=== PATIENT | female | born 1950 | race Caucasian/White ===

== ENCOUNTER 2019-01-07 14:52 | Inpatient (IN) | payer MEDICARE, BC ==
[~2019-01-07] VITALS: Ht 162.6 cm; Wt 131.5 kg
[2019-01-07] MEDS ORDERED: NITROGLYCERIN 0.4MG TABLET SL SL ONE (16:00)
[2019-01-07] MEDS ORDERED: SODIUM CHLORIDE 0.9% 1000ML BAG (SEPSIS BOLUS) IV ONE (16:00)
[2019-01-07] MEDS ORDERED: PIPERACILLIN/TAZ 3.375G PREMIX 50 ML IV ONE (16:00)
[2019-01-07] MEDS ORDERED: VANCOMYCIN 1 G PREMIX 200 ML IV ONE (16:00)
[2019-01-07 16:35] LABS: HEMOGLOBIN. 12.1 g/dL (12.0-16.0); MEAN CORPUSCULAR HEMOGLOBIN 29.3 pg (28.0-32.0); MEAN CORPUSCULAR VOLUME 89.5 fL (81.0-99.0); MEAN PLATELET VOLUME 9.8 fl (7.4-10.4); PLATELET 232 x1000/uL (130-400); RED BLOOD CELL COUNT 4.13 mill/uL (4.2-5.4); RED CELL DISTRIBUTION WIDTH 16.6 % (11.6-14.6)
[2019-01-07 16:38] LABS: CHLORIDE 99 mEq/L (98-107)
[2019-01-07 16:39] LABS: PROTHROMBIN TIME 10.5 sec (9.6-11.0)
[2019-01-07 16:57] LABS: PLATELET ESTIMATE NORMAL
[2019-01-07] MEDS ORDERED: ASPIRIN 325MG TABLET PO ONE (17:15)
[2019-01-07 17:27] LABS: CLARITY URINE CLEAR (CLEAR); COLOR URINE YELLOW (YELLOW); KETONES URINE NEGATIVE (NEGATIVE); LEUKOCYTE ESTERASE URINE TRACE (NEGATIVE); NITRITE URINE NEGATIVE (NEGATIVE); OCCULT BLOOD URINE 3+ (NEGATIVE); PROTEIN URINE 1+ (NEGATIVE); SPECIFIC GRAVITY URINE 1.013 (1.005-1.030); UROBILINOGEN URINE 0.2 E.U./dL (0.2-1.0)
[2019-01-07] MEDS ORDERED: ACETAMINOPHEN 500MG TABLET PO ONE (18:45)
[2019-01-07] MEDS ORDERED: LORAZEPAM 2MG/ML CPJ IV ONE (19:30)
[2019-01-07 20:00] VITALS: BP 138/54
[2019-01-07] MEDS ORDERED: ONDANSETRON HCL 4MG/2ML INJ IV PRN (20:45)
[2019-01-07] MEDS ORDERED: DEXTROSE 50% WATER 50ML SYRINGE IV PRN (20:45)
[2019-01-07] MEDS ORDERED: IPRATROPIUM/ALBUTEROL 0.5-3(2.5)MG/3ML NEB INH PRN (20:45)
[2019-01-07] MEDS ORDERED: HYDROMORPHONE HCL/PF 2MG/ML CPJ IV PRN (20:45)
[2019-01-07] MEDS ORDERED: DOCUSATE SODIUM 100MG CAPSULE PO PRN (20:45)
[2019-01-07] MEDS ORDERED: MAGNESIUM/ALUMINUM HYDROXIDE/SIMETHICONE 30ML UDC PO PRN (20:45)
[2019-01-07] MEDS ORDERED: POTASSIUM CHLORIDE 20MEQ TABLET SR PO NR (21:30)
[2019-01-07] MEDS: BLOOD SUGAR DIAGNOSTIC STRIP TEST SCH (21:30)
[2019-01-07 22:00] VITALS: BP 130/62
[2019-01-07] MEDS ORDERED: VANCOMYCIN 1 G PREMIX 200 ML IV NR (22:00)
[2019-01-07] MEDS: INSULIN LISPRO 100 UNITS/ML SUBCUT SCH (22:50)
[2019-01-07] MEDS: SODIUM CHLORIDE 0.9% INJ 3ML FLUSH IVF SCH (22:51)
[2019-01-07] MEDS: ENOXAPARIN 40MG/0.4ML SYR SUBCUT SCH (22:52)
[2019-01-07] MEDS: GUAIFENESIN 200MG/10ML SUGAR FREE UDC PO PRN (23:40)
[2019-01-07] MEDS: PIPERACILLIN/TAZ 3.375G PREMIX 50 ML IV SCH (23:41)
[2019-01-07] MEDS: LORAZEPAM 2MG/ML CPJ IV PRN (23:41)
[2019-01-07 23:54] LABS: CREATINE KINASE MB FRACTION 62.6 ng/mL (0.5-3.6)
[2019-01-08] VITALS (12 sets, daily range): BP systolic 101–146; BP diastolic 42–99
[2019-01-08] MEDS: ACETAMINOPHEN 325MG TABLET PO PRN (04:16)
[2019-01-08] MEDS: SODIUM CHLORIDE 0.9% INJ 3ML FLUSH IVF SCH ×3 (05:18→21:37)
[2019-01-08] MEDS: DIPHENHYDRAMINE 50MG/ML VIAL IV PRN (05:18)
[2019-01-08] MEDS: LORAZEPAM 2MG/ML CPJ IV PRN (06:51)
[2019-01-08 07:36] LABS: HEMATOCRIT. 33.9 % (36.0-48.0); HEMOGLOBIN. 11.1 g/dL (12.0-16.0); MEAN CORPUSCULAR HEMOGLOBIN 29.6 pg (28.0-32.0); MEAN CORPUSCULAR VOLUME 89.9 fL (81.0-99.0); MEAN PLATELET VOLUME 9.4 fl (7.4-10.4); PLATELET 189 x1000/uL (130-400); RED BLOOD CELL COUNT 3.77 mill/uL (4.2-5.4); RED CELL DISTRIBUTION WIDTH 16.9 % (11.6-14.6)
[2019-01-08 07:48] LABS: CHLORIDE 104 mEq/L (98-107)
[2019-01-08] MEDS: BLOOD SUGAR DIAGNOSTIC STRIP TEST SCH ×4 (07:55→21:34)
[2019-01-08 08:00] LABS: T4 FREE 1.54 ng/dL (0.76-1.46)
[2019-01-08 08:02] LABS: CREATINE KINASE MB FRACTION 30.7 ng/mL (0.5-3.6)
[2019-01-08] MEDS: PIPERACILLIN/TAZ 3.375G PREMIX 50 ML IV SCH (08:24)
[2019-01-08 08:50] LABS: CREATINE KINASE 18105 IU/L (26-192)
[2019-01-08] MEDS: ASPIRIN 81MG TABLET PO SCH (09:29)
[2019-01-08] MEDS: INSULIN LISPRO 100 UNITS/ML SUBCUT SCH ×4 (09:30→21:00)
[2019-01-08] MEDS: HYDROCODONE/ACETAMINOPHEN 10/325MG TABLET PO PRN ×2 (09:33→18:09)
[2019-01-08] MEDS ORDERED: POTASSIUM CHLORIDE 20MEQ TABLET SR PO NR (10:30)
[2019-01-08] MEDS: ENOXAPARIN 40MG/0.4ML SYR SUBCUT SCH (10:52)
[2019-01-08] MEDS: SODIUM CHLORIDE 0.9% 1,000 ML IV SCH ×2 (10:56→23:51)
[2019-01-08 13:09] LABS: PLATELET ESTIMATE NORMAL
[2019-01-08] MEDS ORDERED: NYSTATIN 100,000 UNITS/GM CREAM 15GM TOP SCH (15:00)
[2019-01-08] MEDS: NYSTATIN POWDER 15GM TOP SCH (15:58)
[2019-01-08] MEDS: PIPERACILLIN/TAZ 2.25G PREMIX 50 ML IV SCH ×2 (15:58→21:30)
[2019-01-08] MEDS: GUAIFENESIN 200MG/10ML SUGAR FREE UDC PO PRN (18:09)
[2019-01-08] MEDS: NYSTATIN 100,000 UNITS/GM CREAM 15GM TOP SCH (18:10)
[2019-01-08] MEDS ORDERED: VANCOMYCIN 1 G PREMIX 200 ML IV SCH (21:00)
[2019-01-08] MEDS: ENOXAPARIN 30MG/0.3ML SYR SUBCUT SCH (21:35)
[2019-01-09] VITALS (12 sets, daily range): BP systolic 110–153; BP diastolic 37–74
[2019-01-09] MEDS: PIPERACILLIN/TAZ 2.25G PREMIX 50 ML IV SCH ×4 (02:28→21:29)
[2019-01-09] MEDS: LORAZEPAM 2MG/ML CPJ IV PRN (02:42)
[2019-01-09 07:04] LABS: HEMATOCRIT. 34.7 % (36.0-48.0); HEMOGLOBIN. 11.1 g/dL (12.0-16.0); MEAN CORPUSCULAR HEMOGLOBIN 29.1 pg (28.0-32.0); MEAN CORPUSCULAR VOLUME 90.7 fL (81.0-99.0); MEAN PLATELET VOLUME 9.4 fl (7.4-10.4); PLATELET 163 x1000/uL (130-400); RED BLOOD CELL COUNT 3.82 mill/uL (4.2-5.4)
[2019-01-09] MEDS: BLOOD SUGAR DIAGNOSTIC STRIP TEST SCH ×4 (07:30→21:29)
[2019-01-09] MEDS: INSULIN LISPRO 100 UNITS/ML SUBCUT SCH ×4 (08:00→21:48)
[2019-01-09] MEDS: ENOXAPARIN 30MG/0.3ML SYR SUBCUT SCH ×2 (09:23→21:29)
[2019-01-09] MEDS: ASPIRIN 81MG TABLET PO SCH (09:24)
[2019-01-09] MEDS: NYSTATIN 100,000 UNITS/GM CREAM 15GM TOP SCH ×2 (09:25→21:27)
[2019-01-09] MEDS: NYSTATIN POWDER 15GM TOP SCH ×3 (09:25→18:03)
[2019-01-09 09:28] LABS: PLATELET ESTIMATE NORMAL
[2019-01-09] MEDS: SODIUM CHLORIDE 0.9% INJ 3ML FLUSH IVF SCH (22:00)
[2019-01-09] MEDS: DIPHENHYDRAMINE 50MG/ML VIAL IV PRN (23:15)
[2019-01-10] VITALS (10 sets, daily range): BP systolic 109–143; BP diastolic 42–94
[2019-01-10] MEDS: PIPERACILLIN/TAZ 2.25G PREMIX 50 ML IV SCH ×4 (02:35→20:50)
[2019-01-10] MEDS: LORAZEPAM 2MG/ML CPJ IV PRN ×4 (03:42→22:04)
[2019-01-10] MEDS: DIPHENHYDRAMINE 50MG/ML VIAL IV PRN (05:21)
[2019-01-10] MEDS: SODIUM CHLORIDE 0.9% INJ 3ML FLUSH IVF SCH ×3 (05:28→20:51)
[2019-01-10 06:35] LABS: BASOPHILS % 0.9 % (0.0-2.0); EOSINOPHILS % 7.8 % (0.0-5.0); HEMATOCRIT. 34.7 % (36.0-48.0); HEMOGLOBIN. 11.5 g/dL (12.0-16.0); LYMPHOCYTES % 7.7 % (20.0-50.0); MEAN CORPUSCULAR HEMOGLOBIN 29.6 pg (28.0-32.0); MEAN CORPUSCULAR VOLUME 89.3 fL (81.0-99.0); MEAN PLATELET VOLUME 9.9 fl (7.4-10.4); MONOCYTES % 9.6 % (2.0-8.0); PLATELET 191 x1000/uL (130-400); RED BLOOD CELL COUNT 3.88 mill/uL (4.2-5.4); RED CELL DISTRIBUTION WIDTH 16.5 % (11.6-14.6)
[2019-01-10] MEDS: BLOOD SUGAR DIAGNOSTIC STRIP TEST SCH ×4 (08:12→20:53)
[2019-01-10] MEDS: ASPIRIN 81MG TABLET PO SCH (08:32)
[2019-01-10] MEDS: ENOXAPARIN 30MG/0.3ML SYR SUBCUT SCH (08:32)
[2019-01-10] MEDS: INSULIN LISPRO 100 UNITS/ML SUBCUT SCH ×4 (08:34→20:58)
[2019-01-10] MEDS: NYSTATIN POWDER 15GM TOP SCH ×3 (08:35→17:26)
[2019-01-10] MEDS: NYSTATIN 100,000 UNITS/GM CREAM 15GM TOP SCH ×2 (08:36→20:53)
[2019-01-10] MEDS ORDERED: VANCOMYCIN 1 G PREMIX 200 ML IV SCH (15:00)
[2019-01-11] VITALS (12 sets, daily range): BP systolic 96–149; BP diastolic 53–87
[2019-01-11] MEDS: DIPHENHYDRAMINE 50MG/ML VIAL IV PRN ×3 (00:16→23:51)
[2019-01-11] MEDS: PIPERACILLIN/TAZ 2.25G PREMIX 50 ML IV SCH ×2 (03:43→09:20)
[2019-01-11] MEDS: SODIUM CHLORIDE 0.9% INJ 3ML FLUSH IVF SCH ×3 (05:05→23:58)
[2019-01-11] MEDS: BLOOD SUGAR DIAGNOSTIC STRIP TEST SCH ×4 (07:30→21:00)
[2019-01-11] MEDS: ASPIRIN 81MG TABLET PO SCH (09:20)
[2019-01-11] MEDS: NYSTATIN POWDER 15GM TOP SCH ×3 (09:20→17:32)
[2019-01-11] MEDS: ENOXAPARIN 40MG/0.4ML SYR SUBCUT SCH (09:21)
[2019-01-11] MEDS: NYSTATIN 100,000 UNITS/GM CREAM 15GM TOP SCH ×2 (09:21→23:58)
[2019-01-11] MEDS: INSULIN LISPRO 100 UNITS/ML SUBCUT SCH ×4 (09:23→21:00)
[2019-01-11] MEDS: ACETAMINOPHEN 325MG TABLET PO PRN (10:38)
[2019-01-11] MEDS: LORAZEPAM 2MG/ML CPJ IV PRN (13:42)
[2019-01-11 17:26] LABS: CREATINE KINASE 1603 IU/L (26-192)
[2019-01-11 17:47] LABS: HEPATITIS B SURFACE ANTIGEN NEGATIVE
[2019-01-11 18:17] LABS: HEPATITIS A AB IGM NEGATIVE (NEGATIVE)
[2019-01-12] VITALS (12 sets, daily range): BP systolic 94–150; BP diastolic 56–102
[2019-01-12] MEDS: LORAZEPAM 2MG/ML CPJ IV PRN ×2 (00:45→06:10)
[2019-01-12] MEDS: SODIUM CHLORIDE 0.9% INJ 3ML FLUSH IVF SCH ×3 (06:11→21:38)
[2019-01-12 06:17] LABS: HEMATOCRIT. 32.6 % (36.0-48.0); HEMOGLOBIN. 10.5 g/dL (12.0-16.0); MEAN CORPUSCULAR HEMOGLOBIN 29.1 pg (28.0-32.0); MEAN CORPUSCULAR VOLUME 90.3 fL (81.0-99.0); MEAN PLATELET VOLUME 9.5 fl (7.4-10.4); PLATELET 206 x1000/uL (130-400); RED BLOOD CELL COUNT 3.61 mill/uL (4.2-5.4); RED CELL DISTRIBUTION WIDTH 16.6 % (11.6-14.6)
[2019-01-12] MEDS: BLOOD SUGAR DIAGNOSTIC STRIP TEST SCH ×4 (07:30→21:38)
[2019-01-12] MEDS: NYSTATIN POWDER 15GM TOP SCH ×3 (08:21→18:38)
[2019-01-12] MEDS: ENOXAPARIN 40MG/0.4ML SYR SUBCUT SCH (08:22)
[2019-01-12] MEDS: NYSTATIN 100,000 UNITS/GM CREAM 15GM TOP SCH ×2 (08:22→21:38)
[2019-01-12] MEDS: ASPIRIN 81MG TABLET PO SCH (08:22)
[2019-01-12] MEDS: INSULIN LISPRO 100 UNITS/ML SUBCUT SCH ×4 (08:24→21:47)
[2019-01-12 11:31] LABS: PLATELET ESTIMATE NORMAL
[2019-01-12] MEDS: SODIUM CHLORIDE 0.45% 1,000 ML IV SCH (13:34)
[2019-01-12] MEDS: IPRATROPIUM/ALBUTEROL 0.5-3(2.5)MG/3ML NEB HHN SCH (20:46)
[2019-01-12] MEDS: BUDESONIDE 0.5MG/2ML NEB HHN SCH (20:50)
[2019-01-13] VITALS (10 sets, daily range): BP systolic 132–169; BP diastolic 60–95
[2019-01-13] MEDS: IPRATROPIUM/ALBUTEROL 0.5-3(2.5)MG/3ML NEB HHN SCH ×6 (00:18→21:05)
[2019-01-13] MEDS: SODIUM CHLORIDE 0.9% INJ 3ML FLUSH IVF SCH ×3 (05:54→22:00)
[2019-01-13 06:56] LABS: BASOPHILS % 0.9 % (0.0-2.0); EOSINOPHILS % 12.8 % (0.0-5.0); HEMATOCRIT. 30.4 % (36.0-48.0); LYMPHOCYTES % 11.1 % (20.0-50.0); MEAN CORPUSCULAR HEMOGLOBIN 29.7 pg (28.0-32.0); MEAN CORPUSCULAR VOLUME 90.3 fL (81.0-99.0); MEAN PLATELET VOLUME 9.9 fl (7.4-10.4); MONOCYTES % 6.7 % (2.0-8.0); NEUTROPHILS % 68.5 % (40.0-76.0); PLATELET 203 x1000/uL (130-400); RED BLOOD CELL COUNT 3.37 mill/uL (4.2-5.4); RED CELL DISTRIBUTION WIDTH 16.6 % (11.6-14.6)
[2019-01-13] MEDS: BUDESONIDE 0.5MG/2ML NEB HHN SCH ×2 (07:55→21:04)
[2019-01-13] MEDS: BLOOD SUGAR DIAGNOSTIC STRIP TEST SCH ×4 (08:23→21:00)
[2019-01-13] MEDS: ASPIRIN 81MG TABLET PO SCH (08:40)
[2019-01-13] MEDS: ENOXAPARIN 40MG/0.4ML SYR SUBCUT SCH (08:40)
[2019-01-13] MEDS: NYSTATIN 100,000 UNITS/GM CREAM 15GM TOP SCH ×2 (08:41→22:21)
[2019-01-13] MEDS: INSULIN LISPRO 100 UNITS/ML SUBCUT SCH ×4 (08:41→22:32)
[2019-01-13] MEDS: NYSTATIN POWDER 15GM TOP SCH ×3 (08:42→18:08)
[2019-01-13] MEDS: SODIUM CHLORIDE 0.45% 1,000 ML IV SCH (08:42)
[2019-01-13] MEDS: LORAZEPAM 2MG/ML CPJ IV PRN ×2 (12:39→18:07)
[2019-01-13] MEDS ORDERED: POTASSIUM CHLORIDE 20MEQ TABLET SR PO SCH (12:45)
[2019-01-13] MEDS ORDERED: BUDESONIDE 0.5MG/2ML NEB ONE (20:37)
[2019-01-13] MEDS: RISPERIDONE 1MG TABLET PO SCH (22:21)
[2019-01-14] VITALS (10 sets, daily range): BP systolic 129–169; BP diastolic 66–92
[2019-01-14] MEDS: IPRATROPIUM/ALBUTEROL 0.5-3(2.5)MG/3ML NEB HHN SCH ×5 (00:09→21:58)
[2019-01-14] MEDS: SODIUM CHLORIDE 0.45% 1,000 ML IV SCH (05:00)
[2019-01-14] MEDS: SODIUM CHLORIDE 0.9% INJ 3ML FLUSH IVF SCH ×3 (05:22→21:18)
[2019-01-14 06:03] LABS: BASOPHILS % 1.2 % (0.0-2.0); EOSINOPHILS % 7.1 % (0.0-5.0); HEMATOCRIT. 33.9 % (36.0-48.0); HEMOGLOBIN. 10.9 g/dL (12.0-16.0); LYMPHOCYTES % 13.7 % (20.0-50.0); MEAN CORPUSCULAR HEMOGLOBIN 28.9 pg (28.0-32.0); MEAN CORPUSCULAR VOLUME 89.6 fL (81.0-99.0); MEAN PLATELET VOLUME 9.8 fl (7.4-10.4); MONOCYTES % 5.9 % (2.0-8.0); NEUTROPHILS % 72.1 % (40.0-76.0); PLATELET 271 x1000/uL (130-400); RED BLOOD CELL COUNT 3.78 mill/uL (4.2-5.4); RED CELL DISTRIBUTION WIDTH 16.7 % (11.6-14.6)
[2019-01-14] MEDS: BLOOD SUGAR DIAGNOSTIC STRIP TEST SCH ×4 (07:32→21:18)
[2019-01-14] MEDS: ASPIRIN 81MG TABLET PO SCH (08:31)
[2019-01-14] MEDS: NYSTATIN POWDER 15GM TOP SCH ×3 (08:31→18:30)
[2019-01-14] MEDS: RISPERIDONE 1MG TABLET PO SCH ×2 (08:31→21:24)
[2019-01-14] MEDS: ENOXAPARIN 40MG/0.4ML SYR SUBCUT SCH (08:31)
[2019-01-14] MEDS: NYSTATIN 100,000 UNITS/GM CREAM 15GM TOP SCH ×2 (08:32→21:18)
[2019-01-14] MEDS: INSULIN LISPRO 100 UNITS/ML SUBCUT SCH ×4 (08:33→21:26)
[2019-01-14] MEDS: BUDESONIDE 0.5MG/2ML NEB HHN SCH ×2 (08:34→21:58)
[2019-01-14] MEDS ORDERED: POTASSIUM CHLORIDE 20MEQ TABLET SR PO NR (11:39)
[2019-01-14] MEDS ORDERED: KCL 20MEQ/100ML PREMIX 100 ML IV NR (13:00)
[2019-01-14] MEDS ORDERED: LORAZEPAM 2MG/ML CPJ IV NR (15:15)
[2019-01-14] MEDS ORDERED: MIDAZOLAM HCL 2 MG/2 ML VIAL IV PRN (15:15)
[2019-01-15] VITALS (17 sets, daily range): BP systolic 124–188; BP diastolic 59–94
[2019-01-15] MEDS: HALOPERIDOL LACTATE 5MG/ML VIAL IM PRN (00:55)
[2019-01-15] MEDS: DIPHENHYDRAMINE 50MG/ML VIAL IV PRN ×2 (02:35→22:23)
[2019-01-15] MEDS: IPRATROPIUM/ALBUTEROL 0.5-3(2.5)MG/3ML NEB HHN SCH ×6 (03:16→23:55)
[2019-01-15] MEDS: SODIUM CHLORIDE 0.9% INJ 3ML FLUSH IVF SCH ×3 (05:27→22:13)
[2019-01-15] MEDS: HYDRALAZINE 20MG/ML VIAL IV PRN ×2 (05:41→18:29)
[2019-01-15 06:22] LABS: BASOPHILS % 1.4 % (0.0-2.0); EOSINOPHILS % 8.4 % (0.0-5.0); HEMATOCRIT. 34.3 % (36.0-48.0); HEMOGLOBIN. 10.9 g/dL (12.0-16.0); LYMPHOCYTES % 13.5 % (20.0-50.0); MEAN CORPUSCULAR VOLUME 91.2 fL (81.0-99.0); MEAN PLATELET VOLUME 9.9 fl (7.4-10.4); MONOCYTES % 6.4 % (2.0-8.0); NEUTROPHILS % 70.3 % (40.0-76.0); PLATELET 292 x1000/uL (130-400); RED BLOOD CELL COUNT 3.76 mill/uL (4.2-5.4); RED CELL DISTRIBUTION WIDTH 16.7 % (11.6-14.6)
[2019-01-15] MEDS: BLOOD SUGAR DIAGNOSTIC STRIP TEST SCH ×4 (08:18→20:30)
[2019-01-15] MEDS: BUDESONIDE 0.5MG/2ML NEB HHN SCH ×2 (08:33→20:19)
[2019-01-15] MEDS: ASPIRIN 81MG TABLET PO SCH (08:37)
[2019-01-15] MEDS: RISPERIDONE 1MG TABLET PO SCH ×2 (08:38→21:03)
[2019-01-15] MEDS: NYSTATIN 100,000 UNITS/GM CREAM 15GM TOP SCH ×2 (08:39→21:00)
[2019-01-15] MEDS: NYSTATIN POWDER 15GM TOP SCH ×3 (08:39→18:03)
[2019-01-15] MEDS: ENOXAPARIN 40MG/0.4ML SYR SUBCUT SCH (08:39)
[2019-01-15] MEDS: INSULIN LISPRO 100 UNITS/ML SUBCUT SCH ×4 (08:41→21:03)
[2019-01-15 12:13] LABS: BG BASE EXCESS -1.3 mmol/L (-2.0-2.0); BG CARBOXYHEMOGLOBIN 0.6 % (0.5-1.5); BG DEOXYHEMOGLOBIN 6.3 % (0.0-5.0); BG HCO3 ACT 21.4 mmol/L (22.0-26.0); BG METHEMOGLOBIN 0.2 % (0.0-1.5); BG OXYGEN SATURATION 93.6 % (92.0-98.5); BG OXYHEMOGLOBIN 92.9 % (94.0-97.0); BG PCO2 29.4 mmHg (35.0-45.0); BG PH 7.479 (7.350-7.450); BG PO2 69.6 mmHg (75.0-100.0); BG SAMPLE SITE RIGHT BRACHIAL; BG TOTAL HEMOGLOBIN 11.4 g/dL (12.0-18.0); BG VENT MODE ROOM AIR
[2019-01-15] MEDS ORDERED: LORAZEPAM 2MG/ML CPJ IV PRN (12:15)
[2019-01-15] MEDS: SODIUM CHLORIDE 0.45% 1,000 ML IV SCH (18:03)
[2019-01-16] VITALS (15 sets, daily range): BP systolic 130–169; BP diastolic 57–122
[2019-01-16] MEDS: HALOPERIDOL LACTATE 5MG/ML VIAL IM PRN ×2 (00:53→16:26)
[2019-01-16] MEDS: SODIUM CHLORIDE 0.9% INJ 3ML FLUSH IVF SCH ×3 (05:33→21:27)
[2019-01-16] MEDS: BLOOD SUGAR DIAGNOSTIC STRIP TEST SCH ×4 (07:30→21:17)
[2019-01-16 07:35] LABS: BASOPHILS % 1.1 % (0.0-2.0); EOSINOPHILS % 7.8 % (0.0-5.0); HEMATOCRIT. 30.3 % (36.0-48.0); HEMOGLOBIN. 9.9 g/dL (12.0-16.0); LYMPHOCYTES % 15.2 % (20.0-50.0); MEAN CORPUSCULAR HEMOGLOBIN 29.6 pg (28.0-32.0); MEAN CORPUSCULAR VOLUME 90.1 fL (81.0-99.0); MEAN PLATELET VOLUME 9.7 fl (7.4-10.4); MONOCYTES % 6.7 % (2.0-8.0); NEUTROPHILS % 69.2 % (40.0-76.0); PLATELET 267 x1000/uL (130-400); RED BLOOD CELL COUNT 3.36 mill/uL (4.2-5.4); RED CELL DISTRIBUTION WIDTH 16.8 % (11.6-14.6)
[2019-01-16] MEDS: DIPHENHYDRAMINE 50MG/ML VIAL IV PRN ×3 (07:43→23:54)
[2019-01-16] MEDS: IPRATROPIUM/ALBUTEROL 0.5-3(2.5)MG/3ML NEB HHN SCH ×3 (08:07→20:06)
[2019-01-16] MEDS: ENOXAPARIN 40MG/0.4ML SYR SUBCUT SCH (08:48)
[2019-01-16] MEDS: RISPERIDONE 1MG TABLET PO SCH ×2 (08:48→21:16)
[2019-01-16] MEDS: NYSTATIN POWDER 15GM TOP SCH ×3 (08:58→17:37)
[2019-01-16] MEDS: INSULIN LISPRO 100 UNITS/ML SUBCUT SCH ×4 (09:46→21:25)
[2019-01-16] MEDS: CLONIDINE 0.1MG TABLET PO PRN (11:29)
[2019-01-16] MEDS: SODIUM CHLORIDE 0.45% 1,000 ML IV SCH (11:32)
[2019-01-16] MEDS: NYSTATIN 100,000 UNITS/GM CREAM 15GM TOP SCH ×2 (18:07→21:17)
[2019-01-16] MEDS ORDERED: FURO40TA5 PO (22:30)
[2019-01-16] MEDS ORDERED: ALLO100T PO (22:30)
[2019-01-16] MEDS ORDERED: METO5TAB69 PO (22:30)
[2019-01-16] MEDS ORDERED: DOXA8TAB81 PO (22:30)
[2019-01-16] MEDS ORDERED: GABA-529 PO (22:30)
[2019-01-16] MEDS ORDERED: METO25TA6 MT (22:30)
[2019-01-16] MEDS ORDERED: CYCL10TA7 PO (22:30)
[2019-01-16] MEDS ORDERED: LEVO50TA8 MT (22:30)
[2019-01-17] VITALS (9 sets, daily range): BP systolic 91–154; BP diastolic 57–72
[2019-01-17] MEDS: IPRATROPIUM/ALBUTEROL 0.5-3(2.5)MG/3ML NEB HHN SCH ×4 (00:24→19:55)
[2019-01-17] MEDS: HALOPERIDOL LACTATE 5MG/ML VIAL IM PRN (05:53)
[2019-01-17] MEDS: SODIUM CHLORIDE 0.45% 1,000 ML IV SCH ×2 (05:54→22:03)
[2019-01-17] MEDS: SODIUM CHLORIDE 0.9% INJ 3ML FLUSH IVF SCH ×3 (05:55→23:52)
[2019-01-17] MEDS: CLONIDINE 0.1MG TABLET PO PRN (06:49)
[2019-01-17] MEDS: BLOOD SUGAR DIAGNOSTIC STRIP TEST SCH ×4 (07:30→21:00)
[2019-01-17] MEDS: RISPERIDONE 1MG TABLET PO SCH ×2 (08:43→21:59)
[2019-01-17] MEDS: INSULIN LISPRO 100 UNITS/ML SUBCUT SCH ×4 (08:44→22:04)
[2019-01-17] MEDS: ENOXAPARIN 40MG/0.4ML SYR SUBCUT SCH (08:53)
[2019-01-17] MEDS: NYSTATIN POWDER 15GM TOP SCH ×3 (08:54→17:29)
[2019-01-17] MEDS: NYSTATIN 100,000 UNITS/GM CREAM 15GM TOP SCH ×2 (08:55→21:00)
[2019-01-17] MEDS: DIPHENHYDRAMINE 50MG/ML VIAL IV PRN (22:04)
[2019-01-18] VITALS: BP 125/49
[2019-01-18] MEDS: IPRATROPIUM/ALBUTEROL 0.5-3(2.5)MG/3ML NEB HHN SCH ×3 (02:01→21:07)
[2019-01-18 04:00] VITALS: BP 136/45
[2019-01-18] MEDS: SODIUM CHLORIDE 0.9% INJ 3ML FLUSH IVF SCH ×3 (06:10→21:39)
[2019-01-18 06:26] LABS: BASOPHILS % 1.9 % (0.0-2.0); EOSINOPHILS % 4.8 % (0.0-5.0); HEMATOCRIT. 30.5 % (36.0-48.0); HEMOGLOBIN. 9.8 g/dL (12.0-16.0); LYMPHOCYTES % 13.3 % (20.0-50.0); MEAN CORPUSCULAR HEMOGLOBIN 29.3 pg (28.0-32.0); MEAN CORPUSCULAR VOLUME 90.8 fL (81.0-99.0); MEAN PLATELET VOLUME 9.7 fl (7.4-10.4); MONOCYTES % 7.2 % (2.0-8.0); NEUTROPHILS % 72.8 % (40.0-76.0); PLATELET 262 x1000/uL (130-400); RED BLOOD CELL COUNT 3.37 mill/uL (4.2-5.4); RED CELL DISTRIBUTION WIDTH 16.5 % (11.6-14.6)
[2019-01-18] MEDS: BLOOD SUGAR DIAGNOSTIC STRIP TEST SCH ×4 (07:10→21:30)
[2019-01-18 08:00] VITALS: BP 140/41
[2019-01-18] MEDS: RISPERIDONE 1MG TABLET PO SCH (09:40)
[2019-01-18] MEDS: NYSTATIN 100,000 UNITS/GM CREAM 15GM TOP SCH ×2 (09:40→21:32)
[2019-01-18] MEDS: ENOXAPARIN 40MG/0.4ML SYR SUBCUT SCH (09:40)
[2019-01-18] MEDS: NYSTATIN POWDER 15GM TOP SCH ×2 (09:40→12:31)
[2019-01-18] MEDS: ACETAMINOPHEN 325MG TABLET PO PRN (09:41)
[2019-01-18] MEDS: INSULIN LISPRO 100 UNITS/ML SUBCUT SCH ×4 (09:47→21:38)
[2019-01-18] MEDS: SODIUM CHLORIDE 0.45% 1,000 ML IV SCH ×2 (11:40→18:01)
[2019-01-18 12:00] VITALS: BP 117/50
[2019-01-18] MEDS: BUDESONIDE 0.5MG/2ML NEB HHN SCH ×2 (13:49→21:08)
[2019-01-18 16:00] VITALS: BP 119/76
[2019-01-18] MEDS ORDERED: LORAZEPAM 2MG/ML CPJ IV PRN (16:30)
[2019-01-18 20:00] VITALS: BP 129/51
[2019-01-19] VITALS: BP 123/51
[2019-01-19] MEDS: IPRATROPIUM/ALBUTEROL 0.5-3(2.5)MG/3ML NEB HHN SCH ×4 (01:00→21:25)
[2019-01-19] MEDS: SODIUM CHLORIDE 0.45% 1,000 ML IV SCH ×2 (03:49→20:56)
[2019-01-19 04:00] VITALS: BP 142/54
[2019-01-19] MEDS: BLOOD SUGAR DIAGNOSTIC STRIP TEST SCH ×3 (06:21→18:01)
[2019-01-19] MEDS: SODIUM CHLORIDE 0.9% INJ 3ML FLUSH IVF SCH ×3 (06:26→21:03)
[2019-01-19] MEDS: INSULIN LISPRO 100 UNITS/ML SUBCUT SCH ×3 (06:31→18:06)
[2019-01-19] MEDS: BUDESONIDE 0.5MG/2ML NEB HHN SCH ×2 (07:51→21:25)
[2019-01-19 08:00] VITALS: BP 131/54
[2019-01-19] MEDS: ENOXAPARIN 40MG/0.4ML SYR SUBCUT SCH (08:40)
[2019-01-19] MEDS: NYSTATIN 100,000 UNITS/GM CREAM 15GM TOP SCH ×2 (08:40→20:58)
[2019-01-19 08:50] LABS: BASOPHILS % 2.2 % (0.0-2.0); EOSINOPHILS % 4.9 % (0.0-5.0); HEMATOCRIT. 31.9 % (36.0-48.0); HEMOGLOBIN. 10.4 g/dL (12.0-16.0); LYMPHOCYTES % 14.8 % (20.0-50.0); MEAN CORPUSCULAR HEMOGLOBIN 29.6 pg (28.0-32.0); MEAN PLATELET VOLUME 10.1 fl (7.4-10.4); MONOCYTES % 6.8 % (2.0-8.0); NEUTROPHILS % 71.3 % (40.0-76.0); PLATELET 278 x1000/uL (130-400); RED CELL DISTRIBUTION WIDTH 16.5 % (11.6-14.6)
[2019-01-19 12:00] VITALS: BP 151/55
[2019-01-19 16:00] VITALS: BP 123/73
[2019-01-19 20:00] VITALS: BP 133/68
[2019-01-20] VITALS: BP 128/74
[2019-01-20] MEDS: IPRATROPIUM/ALBUTEROL 0.5-3(2.5)MG/3ML NEB HHN SCH ×3 (01:30→14:23)
[2019-01-20 04:00] VITALS: BP 147/57
[2019-01-20] MEDS ORDERED: INSULIN LISPRO 100 UNITS/ML SUBCUT SCH (05:15)
[2019-01-20] MEDS: SODIUM CHLORIDE 0.9% INJ 3ML FLUSH IVF SCH ×2 (06:07→13:10)
[2019-01-20 08:00] VITALS: BP 142/74
[2019-01-20] MEDS: ENOXAPARIN 40MG/0.4ML SYR SUBCUT SCH (09:06)
[2019-01-20] MEDS: NYSTATIN 100,000 UNITS/GM CREAM 15GM TOP SCH (10:26)
[2019-01-20] MEDS: BLOOD SUGAR DIAGNOSTIC STRIP TEST SCH ×2 (11:27→17:37)
[2019-01-20] MEDS: INSULIN LISPRO 100 UNITS/ML SUBCUT SCH ×3 (11:51→21:02)
[2019-01-20 12:00] VITALS: BP 174/71
[2019-01-20] MEDS: HYDRALAZINE 20MG/ML VIAL IV PRN (12:59)
[2019-01-20] MEDS: SODIUM CHLORIDE 0.45% 1,000 ML IV SCH (13:10)
[2019-01-20 16:00] VITALS: BP 135/57
[2019-01-20 18:53] VITALS: BP 135/57
== END 2019-01-20 21:30 | disposition home health service (06) | DRG 871 ==
LOC: ER 15:29 → 5EST 18:39 → EDBEDREQ 18:43 → ENRESERV 19:57 → 5EST 01-10 07:02 → 8WST 01-17 15:45
PROVIDERS: ADMIT Internal Medicine; ATTEND Internal Medicine
DX: A41.9 Sepsis, unspecified organism (principal); N17.0 Acute kidney failure with tubular necrosis; G92 Toxic encephalopathy; J96.00 Acute respiratory failure, unspecified whether with hypoxia or hypercapnia; E87.2 Acidosis; I50.32 Chronic diastolic (congestive) heart failure; I13.0 Hypertensive heart and chronic kidney disease with heart failure and stage 1 through stage 4 chronic kidney disease, or unspecified chronic kidney disease; M62.82 Rhabdomyolysis; E44.0 Moderate protein-calorie malnutrition; J98.11 Atelectasis; N13.6 Pyonephrosis; Z68.42 Body mass index [BMI] 45.0-49.9, adult; C50.911 Malignant neoplasm of unspecified site of right female breast; D63.8 Anemia in other chronic diseases classified elsewhere; E11.51 Type 2 diabetes mellitus with diabetic peripheral angiopathy without gangrene; E11.22 Type 2 diabetes mellitus with diabetic chronic kidney disease; N18.3 Chronic kidney disease, stage 3 (moderate); J44.9 Chronic obstructive pulmonary disease, unspecified; D50.9 Iron deficiency anemia, unspecified; E87.6 Hypokalemia; E66.01 Morbid (severe) obesity due to excess calories; E86.9 Volume depletion, unspecified; I48.0 Paroxysmal atrial fibrillation; I87.8 Other specified disorders of veins; K76.0 Fatty (change of) liver, not elsewhere classified; K80.20 Calculus of gallbladder without cholecystitis without obstruction; M47.9 Spondylosis, unspecified; R62.7 Adult failure to thrive; W18.30XA Fall on same level, unspecified, initial encounter; L40.9 Psoriasis, unspecified; Y93.89 Activity, other specified; Y99.8 Other external cause status; Y92.009 Unspecified place in unspecified non-institutional (private) residence as the place of occurrence of the external cause; Z79.899 Other long term (current) drug therapy; Z92.3 Personal history of irradiation; Z90.11 Acquired absence of right breast and nipple; Z93.3 Colostomy status
CPT/HCPCS: 36415; 36600; 70551; 71045; 71250; 72070; 72100; 73521; 76700; 80048; 80061; 80202; 82140; 82375; 82550; 82553; 82805; 82962; 83036; 83605; 83880; 84134; 84145; 84439; 84443; 84484; 85379; 86592; 86705; 86709; 86803; 87340; 92610; 93005; 93306; 93970; 97162; 97530; 99291; C1893; J0360; J1170; J1200; J1630; J1650; J1815; J2060; J2250; J2405; J2543; J3370; J3480; J7030; J7050; J7620; J7626